=== PATIENT | male | born 2005 | race Caucasian/White ===

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

== ENCOUNTER → 2024-03-19 | Outpatient (CLI) | payer OTHER ==
[2024-03-19 16:14] LABS: BASOPHILS ABSOLUTE AUTO 0.02 K/mm3 (0.00-0.23); BASOPHILS PERCENT AUTO 0 % (0-2); EOSINOPHILS ABSOLUTE AUTO 0.13 K/mm3 (0.00-0.68); EOSINOPHILS PERCENT AUTO 3 % (0-6); Hematocrit 46.1 % (37.0-53.0); IMMATURE GRAN ABSOLUTE AUTO 0.01 K/mm3 (0.00-0.10); IMMATURE GRAN PERCENT AUTO 0 % (0-1); LYMPHOCYTES ABSOLUTE AUTO 1.13 K/mm3 (0.84-5.20); LYMPHOCYTES PERCENT AUTO 24 % (21-46); MONOCYTES ABSOLUTE AUTO 0.23 K/mm3 (0.16-1.47); MONOCYTES PERCENT AUTO 5 % (4-13); Mean Corpuscular HGB 29.3 pg (26.0-34.0); Mean Corpuscular HGB Conc 34.7 g/dL (31.5-36.5); Mean Corpuscular Volume 84 fL (80-100); Mean Platelet Volume 9.5 fL (9.1-12.4); NEUTROPHILS ABSOLUTE AUTO 3.17 K/mm3 (1.96-9.15); NEUTROPHILS PERCENT AUTO 68 % (41-73); Platelet Count 213 K/mm3 (150-400); RDW Coefficient Variation 12.6 % (11.7-14.2); RDW Standard Deviation 38.6 fL (35.1-46.3); Red Blood Cell Count 5.46 M/mm3 (4.30-5.90); White Blood Cell Count 4.69 K/mm3 (4.00-11.30)
[2024-03-19 16:32] LABS: Albumin, Blood 4.9 g/dL (3.4-5.0); Albumin/Globulin Ratio 1.4 (0.8-1.8); Bilirubin, Total 0.9 mg/dL (0.1-1.0); Bun/Creatinine Ratio 7.6 (12.0-20.0); Calcium, Blood 9.4 mg/dL (8.5-10.1); Creatinine, Blood 0.92 mg/dL (0.60-1.20); Free Thyroxine 1.02 ng/dL (0.70-1.60); Globulin, Blood 3.4 g/dL (2.2-4.0); Potassium, Blood 3.9 mmol/L (3.5-5.5); Thyroid Stimulating Hormone 1.229 uIU/mL (0.360-4.800); Total Protein, Blood 8.3 g/dL (6.4-8.2)
[2024-03-19 17:58] LABS: Follicle Stimulating Hormone 2.5 mIU/ml (0.7-10.8); Luteinizing Hormone 2.5 mIU/ml (1.2-10.6); Prolactin 5.7 ng/mL (2.5-17.4)
[2024-03-19 18:00] LABS: Triiodothyronine, Free 3.48 pg/mL (2.18-3.98)
[2024-03-21 20:21] LABS: DHEAS 411 ug/dL (88-483)
[2024-03-23 00:57] LABS: TESTOSTERONE,FREE MASS SPEC 60.1 pg/mL (47.0-244.0)
[2024-03-25 20:56] LABS: 25-HYDROXYVITAMIN D2 <1.0 ng/mL; 25-HYDROXYVITAMIN D2 D3 TOTAL 23.3 ng/mL (30.0-80.0); 25-HYDROXYVITAMIN D3 23.3 ng/mL
== END ==
LOC: LAB SHORT 16:00 → LAB 16:00
PROVIDERS: Physician Assistant Surgical
DX: N62 Hypertrophy of breast (principal)
CPT/HCPCS: 80053; 82306; 82627; 82670; 83001; 83002; 83036; 84146; 84270; 84402; 84403; 84439; 84443; 84481; 85025

== ENCOUNTER 2024-10-01 02:11 | Emergency (ER) | payer OTHER ==
[~2024-10-01] VITALS: Ht 185.4 cm; Wt 74.8 kg
[2024-10-01 03:45] VITALS: BP 156/102
[2024-10-01] MEDS ORDERED: AMOCLA875 PO (05:03)
== END 2024-10-01 05:10 | disposition home or self-care (01) ==
LOC: ER 02:11
DX: S81.011A Laceration without foreign body, right knee, initial encounter (principal); W17.2XXA Fall into hole, initial encounter
CPT/HCPCS: 12032; 73562-RT; 99283-25; A9270

== ENCOUNTER 2024-12-03 21:28 | Emergency (ER) | payer OTHER ==
[~2024-12-03] VITALS: Ht 185.4 cm; Wt 72.6 kg
[~2024-12-03 21:28] MED LIST: AMOCLA875 PO
[2024-12-03 21:54] VITALS: BP 152/100
[2024-12-03] MEDS ORDERED: Ketorolac Tromethamine 15mg Vial IM ONE (22:50)
== END 2024-12-03 23:04 | disposition home or self-care (01) ==
LOC: ER 21:28
DX: S01.112A Laceration without foreign body of left eyelid and periocular area, initial encounter (principal); R68.84 Jaw pain; Z23 Encounter for immunization; W22.8XXA Striking against or struck by other objects, initial encounter
CPT/HCPCS: 12011; 70450; 90471; 90715; 96372-59; 99283-25; J1885

== ENCOUNTER 2024-12-04 23:59 | Emergency (ER) | payer OTHER ==
[~2024-12-04] VITALS: Ht 185.4 cm; Wt 72.6 kg
[2024-12-05 00:15] VITALS: BP 129/101
== END 2024-12-05 01:03 | disposition home or self-care (01) ==
LOC: ER 23:59
DX: S43.101A Unspecified dislocation of right acromioclavicular joint, initial encounter (principal); V86.59XA Driver of other special all-terrain or other off-road motor vehicle injured in nontraffic accident, initial encounter
CPT/HCPCS: 73030; 99284-25